=== PATIENT | female | born 1990 | race Caucasian/White ===

== ENCOUNTER 2020-08-20 11:45 | Emergency (ER) | payer OTHER ==
--- NOTE | 2020-08-20 12:20 | RAD REPORT ---
EXAM DESCRIPTION: CT - Ct Stroke Brain Wo Cont - 08/20/2020 12:13 pm CLINICAL HISTORY: NUMBNESS Headache, drowsiness COMPARISON: No comparisons TECHNIQUE: All CT scans are performed using dose optimization technique as appropriate and may inclu de automated exposure control or mA/KV adjustment according to patient size. FINDINGS: No intracranial hemorrhage, hydrocephalus or extra-axial fluid collection.No areas of brai n edema or evidence of midline shift. The paranasal sinuses and mastoids are clear. The calvarium is intact. IMPRESSION: No acute intracranial abnormality. The findings were discussed with Dr Lewis in the ER on 08/20/2020 at 12:16 p.m. by telephone.
[2020-08-20 12:22] LABS: Absolute Lymphocytes (CBC) 1.6 K/uL (0.7-4.9); Basophils % 0.3 % (0-1.3); Hematocrit 32.6 % (36.0-45.0); Lymphocytes % 13.6 % (15.3-44.8); MPV 7.6 fL (7.6-11.3); RBC Red Blood Cell Count 3.82 M/uL (3.86-4.86)
[2020-08-20 12:31] LABS: Protime INR 1.01
[2020-08-20 12:45] LABS: ALT/SGPT 20 U/L (12-78); AST/SGOT 13 U/L (15-37); Albumin 2.7 g/dL (3.4-5.0); Alkaline Phosphatase 89 U/L (45-117); BUN Blood Urea Nitrogen 8 mg/dL (7-18); Bicarbonate 23 mmol/L (21-32); Bilirubin Direct < 0.1 mg/dL (0-0.2); Bilirubin Total 0.2 mg/dL (0.2-1.0); Glucose Level 77 mg/dL (74-106); Magnesium 1.8 mg/dL (1.8-2.4); Potassium 3.8 mmol/L (3.5-5.1); Protein, Total 6.6 g/dL (6.4-8.2); Sodium Level 137 mmol/L (136-145); Troponin (Emerg Dept Use Only) < 0.02 ng/mL (0.0-0.045)
[2020-08-20] MEDS ORDERED: DIPHENHYDRAMINE 50 MG/ML VIAL ONE (13:16)
[2020-08-20] MEDS ORDERED: METOCLOPRAMIDE 10 MG/2mL INJ ONE (13:16)
--- NOTE | 2020-08-20 13:42 | EDPHYS ---
Physician Documentation [facility] Name: Char Saldivar Age: 30 yrs Sex: Female : 1990 Arrival Date: 08/20/2020 Time: 11:55 Bed 18 Private MD: ED Physician Pritesh Lewis HPI: 08/20 11:50 This 30 yrs old Female presents to ER via EMS with complaints of numbness. jr8 11:50 The patient's problem is reported as paresthesias, in right side of face, dysphasia, jr8 expressive aphasia, visual difficulty, blurred vision, decreased vision in the right eye. Onset: The symptoms/episode began/occurred acutely, today, at 07:50. Duration: This was a single incident. Context: the episode(s) was witnessed, by co-worker(s). The symptoms are alleviated by nothing. The symptoms are aggravated by nothing. Associated signs and symptoms: Pertinent positives: headache. Severity of symptoms: At their worst the symptoms were moderate in the emergency department the symptoms have improved. Patient's baseline: Neuro: alert and fully oriented, Motor: no deficits, Ambulation: walks without assistance, Speech: normal. The patient has not experienced similar symptoms in the past. The patient has not recently seen a physician. WOOD SAWYER: 12:50 LMP N/A - currently jd3 Historical: - Allergies: 12:49 NKDA; jd3 - Home Meds: 12:49 Lovenox Sub-Q [Active]; Aspirin Oral [Active]; oral oral [Active]; jd3 - PMHx: 12:49 Pre-eclampsia; jd3 - PSHx: 12:49 jaw; ; jd3 - Immunization history:: Adult Immunizations up to date. - Social history:: Smoking status: Patient/guardian denies using tobacco. ROS: 11:50 Eyes: Negative for injury, pain, redness, and discharge, ENT: Negative for injury, jr8 pain, and discharge, Neck: Negative for injury, pain, and swelling, Cardiovascular: Negative for chest pain, palpitations, and edema, Respiratory: Negative for shortness of breath, cough, wheezing, and pleuritic chest pain, Abdomen/GI: Negative for abdominal pain, nausea, vomiting, diarrhea, and constipation, Back: Negative for injury and pain, MS/Extremity: Negative for injury and deformity, Skin: Negative for injury, rash, and discoloration. 11:50 Neuro: Positive for headache, numbness, speech changes. Exam: 11:50 Radiologist reports: negative for acute findings jr8 11:50 Eyes: Pupils equal round and reactive to light, extra-ocular motions intact. Lids and lashes normal. Conjunctiva and sclera are non-icteric and not injected. Cornea within normal limits. Periorbital areas with no swelling, redness, or edema. ENT: Nares patent. No nasal discharge, no septal abnormalities noted. Tympanic membranes are normal and external auditory canals are clear. Oropharynx with no redness, swelling, or masses, exudates, or evidence of obstruction, uvula midline. Mucous membranes moist. Neck: Trachea midline, no thyromegaly or masses palpated, and no cervical lymphadenopathy. Supple, full range of motion without nuchal rigidity, or vertebral point tenderness. No Meningismus. Cardiovascular: Regular rate and rhythm with a normal S1 and S2. No gallops, murmurs, or rubs. Normal PMI, no JVD. No pulse deficits. Respiratory: Lungs have equal breath sounds bilaterally, clear to auscultation and percussion. No rales, rhonchi or wheezes noted. No increased work of breathing, no retractions or nasal flaring. Abdomen/GI: Soft, non-tender, with normal bowel sounds. No distension or tympany. No guarding or rebound. No evidence of tenderness throughout. Back: No spinal tenderness. No costovertebral tenderness. Full range of motion. Skin: Warm, dry with normal turgor. Normal color with no rashes, no lesions, and no evidence of cellulitis. MS/ Extremity: Pulses equal, no cyanosis. Neurovascular intact. Full, normal range of motion. Neuro: Awake and alert, GCS 15, oriented to person, place, time, and situation. Cranial nerves II-XII grossly intact. Motor strength 5/5 in all extremities. Sensory grossly intact. Cerebellar exam normal. Normal gait. Vital Signs: 12:50 BP 119 / 70; Pulse 89; Resp 17 S; Temp 97.8(O); Pulse Ox 100% on R/A; Weight 104.33 kg jd3 (R); Height 5 ft. 3 in. (160.02 cm) (R); Pain 5/10; 13:21 BP 106 / 62; Pulse 87; Resp 17 S; Pulse Ox 99% on R/A; jd3 14:11 BP 121 / 66; Pulse 88; Resp 16 S; Pulse Ox 100% on R/A; jd3 15:27 BP 119 / 73; Pulse 85; Resp 16 S; Pulse Ox 100% on R/A; Pain 5/10; jd3 12:50 Body Mass Index 40.74 (104.33 kg, 160.02 cm) jd3 NIH Stroke Scale Scores: 11:50 NIHSS Score: 0 jd3 11:50 NIHSS Score: 0 jr8 MDM: 11:59 Patient medically screened. jr8 13:41 Data reviewed: vital signs, nurses notes, lab test result(s), EKG, radiologic studies, rust CT scan. Data interpreted: Pulse oximetry: on room air is 99 %. Interpretation: normal. Counseling: I had a detailed discussion with the patient and/or guardian regarding: the historical points, exam findings, and any diagnostic results supporting the discharge/admit diagnosis, lab results, radiology results, the need to transfer to another facility, [facility] does not immediately have the required specialist. ED course: Patient on daily aspirin and lovenox. Will hold any other antiplatelet meds at this time. No tPA warranted at this time as well as she has resolved symptoms. Spoke with Dr. Michael at [facility] about differential and need for further evaluation and observation. Dr. Michael excepted patient at [facility]. 08/20 12:00 Order name: Hepatic Function rust 08/20 12:00 Order name: Troponin (emerg Dept Use Only); Complete Time: 12:48 rust 08/20 12:00 Order name: Magnesium; Complete Time: 12:48 rust 08/20 12:00 Order name: Basic Metabolic Panel; Complete Time: 12:48 rust 08/20 12:00 Order name: CBC with Diff; Complete Time: 12:48 rust 08/20 12:00 Order name: Protime (+inr); Complete Time: 12:48 rust 08/20 12:00 Order name: Ptt, Activated; Complete Time: 12:48 rust 08/20 12:00 Order name: CT Stroke Brain w/o Contrast; Complete Time: 12:48 rust 08/20 12:00 Order name: Liver (Hepatic) Function; Complete Time: 12:48 EDDC 08/20 14:44 Order name: SARS-COV-2 RT PCR; Complete Time: 14:46 [facility] 08/20 12:00 Order name: EKG; Complete Time: 12:01 rust 08/20 12:00 Order name: Accucheck; Complete Time: 12:54 rust 08/20 12:00 Order name: Cardiac monitoring; Complete Time: 12:54 rust 08/20 12:00 Order name: EKG - Nurse/Tech; Complete Time: 12:54 rust 08/20 12:00 Order name: IV Saline Lock; Complete Time: 12:14 rust 08/20 12:00 Order name: Labs collected and sent; Complete Time: 12:14 rust 08/20 12:00 Order name: NPO; Complete Time: 12:54 rust 08/20 12:00 Order name: O2 Per Protocol; Complete Time: 12:15 rust 08/20 12:00 Order name: O2 Sat Monitoring; Complete Time: 12:15 rust 08/20 12:00 Order name: Stroke Swallow Screen; Complete Time: 12:54 rust Administered Medications: 13:07 Drug: Benadryl (diphenhydrAMINE) 25 mg Route: IVP; Site: right antecubital; jd3 14:00 Follow up: Response: No adverse reaction jd3 13:08 Drug: Reglan (metoCLOPramide) 10 mg Route: IVP; Site: right antecubital; jd3 14:00 Follow up: Response: No adverse reaction jd3 14:15 Drug: Tylenol 1000 mg Route: PO; jd3 Point of Care Testing: Blood Glucose: 11:50 Blood Glucose: 73 mg/dL; jd3 Ranges: Critical Glucose Levels:Adult <50 mg/dl or >400 mg/dl <40 mg/dl or >180 mg/dl Disposition: 17:29 Co-signature as Attending Physician, Pritesh Lewis MD. rn Disposition: 08/20/20 13:42 Transfer ordered to [facility] [place]. Diagnosis is Transient cerebral ischemic attack, unspecified. - Reason for transfer: Higher level of care. - Accepting physician is Dr. Michael. - Condition is Stable. - Problem is new. - Symptoms have improved. NIH Stroke Scale - NIH Stroke Score Date: 08/20/2020 Time: 11:50 Total Score = 0 1a. Level of Consciousness (LOC) - 0(Alert) 1b. Level of Consciousness (LOC) (Year \T\ Age) - 0(Both) 1c. LOC Commands (Open \T\ Closes Eyes/Supervisor Powdered Sugar) - 0(Both) 2. Best Gaze (Lateral Gaze Paresis) - 0(Normal) 3. Visual Field Loss - 0(No visual loss) 4. Facial Palsy - 0(Normal) 5a. Left Arm: Motor (10-second hold) - 0(No drift) 5b. Right Arm: Motor (10-second hold) - 0(No drift) 6a. Left Leg: Motor (5-second hold - always test supine) - 0(No drift) 6b. Right Leg: Motor (5-second hold - always test supine) - 0(No drift) 7. Limb Ataxia (finger/nose \T\ heel/ziegler - test with eyes open) - 0(Absent) 8. Sensory Loss (pinprick arms/legs/face) - 0(Normal) 9. Best Language: Aphasia (description/naming/reading) - 0(No aphasia) 10. Dysarthria (speech clarity - read or repeat words) - 0(Normal) 11. Extinction and Inattention (visual/tactile/auditory/spatial/personal) - 0(No abnormality) Initials: jd3 NIH Stroke Scale - NIH Stroke Score Date: 08/20/2020 Time: 11:50 Total Score = 0 1a. Level of Consciousness (LOC) - 0(Alert) 1b. Level of Consciousness (LOC) (Year \T\ Age) - 0(Both) 1c. LOC Commands (Open \T\ Closes Eyes/Supervisor Powdered Sugar) - 0(Both) 2. Best Gaze (Lateral Gaze Paresis) - 0(Normal) 3. Visual Field Loss - 0(No visual loss) 4. Facial Palsy - 0(Normal) 5a. Left Arm: Motor (10-second hold) - 0(No drift) 5b. Right Arm: Motor (10-second hold) - 0(No drift) 6a. Left Leg: Motor (5-second hold - always test supine) - 0(No drift) 6b. Right Leg: Motor (5-second hold - always test supine) - 0(No drift) 7. Limb Ataxia (finger/nose \T\ heel/ziegler - test with eyes open) - 0(Absent) 8. Sensory Loss (pinprick arms/legs/face) - 0(Normal) 9. Best Language: Aphasia (description/naming/reading) - 0(No aphasia) 10. Dysarthria (speech clarity - read or repeat words) - 0(Normal) 11. Extinction and Inattention (visual/tactile/auditory/spatial/personal) - 0(No abnormality) Initials: jr8 Signatures: Dispatcher [employer] EDMS Pritesh Lewis MD MD rn Roszak, Josh, PA PA jr8 Danilo Presley RN RN jd3 Corrections: (The following items were deleted from the chart) 13:18 12:01 Chest Single View+RAD.RAD.BRZ ordered. EDMS EDMS 13:38 13:36 This 30 yrs old Female presents to ER via EMS with complaints jr8 of numbness. jr8 14:05 13:03 CORONAVIRUS+MR.LAB.BRZ ordered. EDMS EDMS 15:31 13:42 08/20/2020 13:42 Transfer ordered to [facility]. Diagnosis is jd3 Transient cerebral ischemic attack, unspecified. Reason for transfer: Higher level of care. Accepting physician is Dr. Michael. Condition is Stable. Problem is new. Symptoms have improved. jr8
--- NOTE | 2020-08-20 13:42 | ER ---
Nurse's Notes [facility] Name: Char Saldivar Age: 30 yrs Sex: Female : 1990 Arrival Date: 08/20/2020 Time: 11:55 Bed 18 Private MD: Diagnosis: Transient cerebral ischemic attack, unspecified Presentation: 08/20 11:50 An acute neurological deficit is present. The charge nurse has been notified. The jd3 patient has been moved to a treatment area. The patients blood glucose was checked before arriving to the hospital and was found to be normal. 11:55 Chief complaint: EMS states: "pt reported that while she was on the computer this jd3 morning she started having off and on numbness of her right arm and right side of face. along with dizziness and confusion. confusion only last a couple of minutes, but the dizziness, headache, and off and on tingling of the right side of face and arm continued. pt is 35 weeks with a scheduled on September [address] Michael at [facility]. pt reports a history of blood clots and is on aspirin and Lovenox along with her vitamins.". 11:55 Coronavirus screen: At this time, the client does not indicate any symptoms associated jd3 with coronavirus-19. Ebola Screen: Patient negative for fever greater than or equal to 101.5 degrees Fahrenheit, and additional compatible Ebola Virus Disease symptoms. Initial Sepsis Screen: Does the patient meet any 2 criteria? No. Patient's initial sepsis screen is negative. Does the patient have a suspected source of infection? No. Patient's initial sepsis screen is negative. Risk Assessment: Do you want to hurt yourself or someone else? Patient reports no desire to harm self or others. Onset of symptoms was August 20, 2020 at 07:30. 11:55 Method Of Arrival: EMS: [facility] jd3 11:55 Acuity: STEPHANY 2 jd3 Triage Assessment: 11:55 The onset of the patients symptoms was August 20, 2020 at 07:30. Neuro: Reports jd3 dizziness, numbness in right arm and right side of face. EDUCATIONAL TECHNOLOGY COORDINATOR: 12:50 LMP N/A - currently jd3 Stroke Activation: Symtpom onset >3 hours and < 6 hours Physician: Stroke Attending; Name: ; Notified At: ; Arrived At: Physician: Chief Stroke Resident; Name: ; Notified At: ; Arrived At: Physician: Stroke Resident; Name: ; Notified At: ; Arrived At: Physician: ED Attending; Name: Joshua UMANZOR/ Luis Carlos ROY; Notified At: 11:55; Arrived At: 11:55 Physician: ED Resident; Name: ; Notified At: ; Arrived At: Historical: - Allergies: 12:49 NKDA; jd3 - Home Meds: 12:49 Lovenox Sub-Q [Active]; Aspirin Oral [Active]; oral oral [Active]; jd3 - PMHx: 12:49 Pre-eclampsia; jd3 - PSHx: 12:49 jaw; ; jd3 - Immunization history:: Adult Immunizations up to date. - Social history:: Smoking status: Patient/guardian denies using tobacco. Screenin:09 Abuse screen: Denies threats or abuse. Nutritional screening: No deficits noted. jd3 Tuberculosis screening: No symptoms or risk factors identified. Fall Risk Ambulatory Aid- None/Bed Rest/Nurse Assist (0 pts). Gait- Normal/Bed Rest/Wheelchair (0 pts) Mental Status- Oriented to own ability (0 pts). Total Ventura Fall Scale indicates No Risk (0-24 pts). Assessment: 11:50 VAN Scoring: Arm Drift: Patients demonstrates NO arm weakness. Patient is VAN Negative. jd3 The patient has not been NPO before screening. The patient is currently on the following diet: regular The patient is alert, and able to follow commands. The patient does not exhibit slurred or garbled speech. The patient is not exhibiting difficulty speaking. The patient is exhibiting difficulty understanding words. The patient is able to swallow own secretions with no drooling or need for suction. Patient tolerated one teaspoon of water. No drooling, immediate coughing, gurgling, or clearing of the throat was noted. The patient tolerated 90mL of water. No drooling, immediate coughing, gurgling, or clearing of the throat was noted. The patient passed the bedside swallow screening. Oral medications may be given as ordered. Contact Physician for further diet orders. Provider notified of bedside swallow screening results: Luis Carlos ROY. T-PA (Activase) Screening: Contraindications: Is the patient on Aspirin, Heparin, or Warfarin: Yes. 11:55 General: Appears uncomfortable, Behavior is cooperative, appropriate for age, anxious. jd3 Pain: Complains of pain in head Quality of pain is described as pressure, sharp. Neuro: Level of Consciousness is awake, alert, obeys commands, Oriented to person, place, time, situation, Manager Medicare are equal bilaterally Moves all extremities. Full function Gait is steady, Speech is normal, Facial symmetry appears normal, Pupils are PERRLA, Intact Reports off and on numbness tingling of right side of face and right arm. Cardiovascular: Denies chest pain, Capillary refill < 3 seconds Patient's skin is warm and dry. Rhythm is regular. Respiratory: Airway is patent Respiratory effort is even, unlabored, Respiratory pattern is regular, symmetrical, Denies cough, shortness of breath. GI: Abdomen is round pt currently . : No signs and/or symptoms were reported regarding the genitourinary system. EENT: No signs and/or symptoms were reported regarding the EENT system. Derm: Skin is intact, Skin is dry, Skin is normal, Skin temperature is warm. Musculoskeletal: Circulation, motion, and sensation intact. Range of motion: intact in all extremities. 12:00 Reassessment: Patient and/or family updated on plan of care and expected duration. Pain jd3 level reassessed. Patient is alert, oriented x 3, equal unlabored respirations, skin warm/dry/pink. pt reports dizziness and tingling/numbness resolved. provider notified. 13:00 Reassessment: No changes from previously documented assessment. Patient and/or family jd3 updated on plan of care and expected duration. Pain level reassessed. Patient is alert, oriented x 3, equal unlabored respirations, skin warm/dry/pink. pt medicated for headache. awaiting disposition. verbal reassurance given to pt and family. 14:00 Reassessment: No changes from previously documented assessment. Patient and/or family jd3 updated on plan of care and expected duration. Pain level reassessed. Patient is alert, oriented x 3, equal unlabored respirations, skin warm/dry/pink. reported continued headache. medicated per provider order of Tylenol. report given to [facility] team. 14:32 Reassessment: report given to Eloisa BECKWITH at [facility]\\T\\D. jd3 15:25 Reassessment: Patient appears in no apparent distress at this time. Patient and/or jd3 family updated on plan of care and expected duration. Pain level reassessed. Patient is alert, oriented x 3, equal unlabored respirations, skin warm/dry/pink. pt reports no change in pain, provider notified. no reports of tingling or numbness at this time. bedside report given to transfer crew. Vital Signs: 12:50 BP 119 / 70; Pulse 89; Resp 17 S; Temp 97.8(O); Pulse Ox 100% on R/A; Weight 104.33 kg jd3 (R); Height 5 ft. 3 in. (160.02 cm) (R); Pain 5/10; 13:21 BP 106 / 62; Pulse 87; Resp 17 S; Pulse Ox 99% on R/A; jd3 14:11 BP 121 / 66; Pulse 88; Resp 16 S; Pulse Ox 100% on R/A; jd3 15:27 BP 119 / 73; Pulse 85; Resp 16 S; Pulse Ox 100% on R/A; Pain 5/10; jd3 12:50 Body Mass Index 40.74 (104.33 kg, 160.02 cm) jd3 Vitals: 14:46 Heart Tones 144. ca1 NIH Stroke Scale Scores: 11:50 NIHSS Score: 0 jd3 11:50 NIHSS Score: 0 jr8 ED Course: 11:55 Patient arrived in ED. as 11:55 Patient has correct armband on for positive identification. Bed in low position. Call j light in reach. Side rails up X2. Adult w/ patient. 11:55 security monitor on. Pulse ox on. NIBP on. jd3 11:59 Luis Carlos Busch PA is PHCP. jr8 11:59 Pritesh Lewis MD is Attending Physician. jr8 12:13 CT Stroke Brain w/o Contrast In Process Unspecified. EDMS 12:14 Inserted saline lock: 20 gauge in right antecubital area, using aseptic technique. dh4 Blood collected. 12:38 Danilo Presley RN is Primary Nurse. jd3 12:47 Triage completed. jd3 12:51 Arm band placed on. EKG completed in triage. Results shown to . jd3 15:29 No provider procedures requiring assistance completed. Patient transferred, IV remains jd3 in place. Administered Medications: 13:07 Drug: Benadryl (diphenhydrAMINE) 25 mg Route: IVP; Site: right antecubital; jd3 14:00 Follow up: Response: No adverse reaction jd3 13:08 Drug: Reglan (metoCLOPramide) 10 mg Route: IVP; Site: right antecubital; jd3 14:00 Follow up: Response: No adverse reaction jd3 14:15 Drug: Tylenol 1000 mg Route: PO; jd3 Point of Care Testing: Blood Glucose: 11:50 Blood Glucose: 73 mg/dL; jd3 Ranges: Outcome: 13:42 ER care complete, transfer ordered by jrGali 15:29 Transferred by ground EMS [facility] Transfer form completed. X-rays jd3 sent w/ patient. 15:29 Condition: stable 15:29 Instructed on the need for transfer, Demonstrated understanding of instructions. 15:31 Patient left the ED. jd3 NIH Stroke Scale - NIH Stroke Score Date: 08/20/2020 Time: 11:50 Total Score = 0 1a. Level of Consciousness (LOC) - 0(Alert) 1b. Level of Consciousness (LOC) (Year \\T\\ Age) - 0(Both) 1c. LOC Commands (Open \\T\\ Closes Eyes/Sap Treasury Consultant) - 0(Both) 2. Best Gaze (Lateral Gaze Paresis) - 0(Normal) 3. Visual Field Loss - 0(No visual loss) 4. Facial Palsy - 0(Normal) 5a. Left Arm: Motor (10-second hold) - 0(No drift) 5b. Right Arm: Motor (10-second hold) - 0(No drift) 6a. Left Leg: Motor (5-second hold - always test supine) - 0(No drift) 6b. Right Leg: Motor (5-second hold - always test supine) - 0(No drift) 7. Limb Ataxia (finger/nose \\T\\ heel/ziegler - test with eyes open) - 0(Absent) 8. Sensory Loss (pinprick arms/legs/face) - 0(Normal) 9. Best Language: Aphasia (description/naming/reading) - 0(No aphasia) 10. Dysarthria (speech clarity - read or repeat words) - 0(Normal) 11. Extinction and Inattention (visual/tactile/auditory/spatial/personal) - 0(No abnormality) Initials: felix NIH Stroke Scale - NIH Stroke Score Date: 08/20/2020 Time: 11:50 Total Score = 0 1a. Level of Consciousness (LOC) - 0(Alert) 1b. Level of Consciousness (LOC) (Year \\T\\ Age) - 0(Both) 1c. LOC Commands (Open \\T\\ Closes Eyes/Sap Treasury Consultant) - 0(Both) 2. Best Gaze (Lateral Gaze Paresis) - 0(Normal) 3. Visual Field Loss - 0(No visual loss) 4. Facial Palsy - 0(Normal) 5a. Left Arm: Motor (10-second hold) - 0(No drift) 5b. Right Arm: Motor (10-second hold) - 0(No drift) 6a. Left Leg: Motor (5-second hold - always test supine) - 0(No drift) 6b. Right Leg: Motor (5-second hold - always test supine) - 0(No drift) 7. Limb Ataxia (finger/nose \\T\\ heel/ziegler - test with eyes open) - 0(Absent) 8. Sensory Loss (pinprick arms/legs/face) - 0(Normal) 9. Best Language: Aphasia (description/naming/reading) - 0(No aphasia) 10. Dysarthria (speech clarity - read or repeat words) - 0(Normal) 11. Extinction and Inattention (visual/tactile/auditory/spatial/personal) - 0(No abnormality) Initials: jr8 Signatures: Dispatcher [employer] Prudence Salazar Josh, PA PA jr8 Danilo Presley RN RN jd3 Brielle Hernandez RN RN ap3 Yue Rodriguez RN RN ca1 Huhn, Donald dh Corrections: (The following items were deleted from the chart) 13:17 13:16 The onset of the patients symptoms was August 20, 2020 at 07:30 felix [place] 13:17 13:16 Neuro: Reports dizziness, numbness in right arm and right side of face jd3jd3 14:17 14:00 Reassessment: No changes from previously documented assessment. Patient felix and/or family updated on plan of care and expected duration. Pain level reassessed. Patient is alert, oriented x 3, equal unlabored respirations, skin warm/dry/pink. reported continued headache. medicated per provider order of Tylenol. jd3 14:28 14:27 Reassessment: report given to Eloisa BECKWITH at [facility]\\T\\D. ap3 ap3
[2020-08-20] MEDS ORDERED: ACETAMINOPHEN 500 MG TAB ONE (14:18)
[2020-08-20 15:37] VITALS: TEMP 97.8
[2020-08-20 15:40] VITALS: O2SAT 100
[2020-08-20 15:41] VITALS: BP 119/73
--- NOTE | 2020-08-20 16:08 | EKG ---
Test Date: 2020-08-20 Test Time: 12:18:54 Watch Dial Printer: PIERO MEASUREMENT RESULTS: Intervals: Rate: 92 NV: 138 QRSD: 72 QT: 366 QTc: 452 [place]: P: 27 NV: 138 QRS: 14 T: 28 INTERPRETIVE STATEMENTS: Normal sinus rhythm Normal ECG Compared to ECG 08/07/2015 08:48:45 No significant changes Electronically Signed On 08-20-20 16:06:46 CDT by Selvin Blandon
== END 2020-08-20 15:31 ==
LOC: ER 11:45
DX: O99.413 Diseases of the circulatory system complicating pregnancy, third trimester (principal); I67.82 Cerebral ischemia; Z20.822 Contact with and (suspected) exposure to COVID-19; Z3A.35 35 weeks gestation of pregnancy; Z79.82 Long term (current) use of aspirin
CPT/HCPCS: 93005; 85025; 80048; 36415; 83735; 85610; 82947; 80076; 85730; 84484; 70450; 96375; 96374; 99285; U0003; J2765; J1200